=== PATIENT | male | born 1960 | race Caucasian/White ===

== ENCOUNTER → 2024-10-28 11:00 | Outpatient (REF) | payer BC, SELFPAY | LOC: MRI 3T 11:00 | PROVIDERS: ATTENDING PHYSICIAN Urology; FAMILY PHYSICIAN Family Medicine | DX: R97.20 Elevated prostate specific antigen [PSA] (principal) | CPT/HCPCS: 72197; A9575 ==

== ENCOUNTER → 2024-11-09 07:34 | Outpatient (REF) | payer BC, SELFPAY | LOC: RAD 07:34 | PROVIDERS: ATTENDING PHYSICIAN Urology; FAMILY PHYSICIAN Family Medicine | DX: R31.29 Other microscopic hematuria (principal) | CPT/HCPCS: 74178; Q9967 ==

== ENCOUNTER 2024-12-29 05:27 | Emergency (ER) | payer BC, SELFPAY ==
[2024-12-29] VITALS (8 sets, daily range): BP systolic 138–153; BP diastolic 104–122; BMI 39.1
[2024-12-29 06:11] LABS: Hematocrit 48.8 % (39.0-52.0); Hemoglobin 17.3 g/dL (13.0-18.0); Mean Corp Hgb Conc. 35.5 g/dL (33.0-37.0); Mean Corpuscular Volume 86.2 fL (80.0-94.0); Nucleated Red Blood Cells % 0 % (-); Platelet Count 191 10^3/uL (130-400); Red Cell Dist. Width 12.6 % (11.5-14.5)
--- NOTE | 2024-12-29 06:12 | ED.GENMED ---
History of Present Illness
General
Chief Complaint: Chest Pain
Source: patient
Exam Limitations: none
Time Seen by Provider: 12/29/24 06:00
Nursing documentation reviewed up to this point in time: agreed with
History of Present Illness
History of Present Illness:
64-year-old male with history of chronic A-fib on Eliquis, hypertension who presents to the emergency department with his for evaluation of chest pain. Patient reports onset of symptoms yesterday evening�he says he started to notice some mild
symptoms after dinner and they seem to be worse when he was laying in bed at night. He describes a tightness in his chest worse with lying flat. He denies any associated shortness of breath. He denies any diaphoresis. Denies any nausea,
vomiting, abdominal pain. He denies any recent cough, fevers, chills or URI symptoms. He denies having had similar symptoms in the past. He sees Dr. Combs for cardiology, on Eliquis and diltiazem for his A-fib and reports compliance.
Review of Systems
Review of Systems
All Other Systems: ROS reviewed and negative except as documented in HPI and ROS
Constitutional: Denies fever
Respiratory: Denies trouble breathing
Cardiac: Reports chest pain
ABD/GI: Denies abdominal pain, nausea or vomiting
: Denies flank pain
Musculoskeletal: Denies neck pain or back pain
Neurological: Denies dizzy or headache
Phy Exam
Physical Exam
Physical Exam:
General: Awake, alert, oriented x3; no acute distress
Head: Normocephalic, atraumatic
Eyes: Conjunctiva normal, sclera anicteric
Throat: Airway intact, handling secretions
Neck: Trachea midline, supple without meningismus
Lungs: Clear to auscultation bilaterally, no wheezing, rales, rhonchi
Heart: Regular rate and irregular rhythm, no murmurs, gallops, or rubs appreciated
Abd: Soft, non distended, nontender
Neuro: Grossly intact
Skin: no rash in area of concern
Extremities: No edema in extremities, equal pulses in all extremities
Scores
Heart Failure Risk
Heart Failure Risk Score: Not Applicable
Heart Score for Chest Pain Patients
STEMI patient?: No
History: Slightly or Non-Suspicious
ECG: Normal
Age: >45 - <65 years
Risk Factors: 1 or 2 Risk Factors
Troponin: </= Normal Limit
Heart Score for Chest Pain Patients: 2
Heart Score Risk: 2.5% MACE over next 6 weeks
Withdrawal Assessment of Alcohol
Withdrawal Assessment Completed?: Not applicable
Course
Orders/Labs/Results
Orders:
Orders
12/29/24 05:29
Electrocardiogram (*1) Urgent
Reason for Study: Other
Other Reason for Exam: Respiratory Distress
Cardiac Monitoring- Treatment ONCE
EKG- Treatment ONCE
IV Insert/Care/Rem.- Treatment PRN
CR Chest - 2 Views Urgent
Comment:
Reason For Exam: respiratory distress
O2 Therapy [RESP] Urgent
Titrate/Wean O2 to maintain O2 sat greater than (%): 93
Special Instructions: TO MAINTAIN CONTINUOUS O2 SATS >/= 93%
Pulse Ox/cont/shift [RESP] Urgent
Quantity: 1
Special Instructions: continuous pulse ox
12/29/24 06:02
C-Reactive Protein Urgent
Comment: ADD ON
Complete Blood Count/With Diff Urgent
Comprehensive Metabolic Panel Urgent
Erythrocyte Sed Rate Urgent
Comment: ADD ON
NT-proBNP Urgent
Troponin I Urgent
12/29/24 06:50
Add On- LAB Urgent
Comments:: tubes in lab
Tests Added?: CRP, ESR
12/29/24 08:22
Troponin I Urgent
Abnormal Lab Results
12/29/24
06:02
Absolute Monos (auto) 0.8 H 10^3/uL
(0.1-0.6)
Lymphocytes % 17.7 L %
(20.5-51.1)
Monocytes % 9.6 H %
(1.7-9.3)
BUN 26 H mg/dl
(9-20)
Glucose 117 H mg/dl
(70-99)
Total Bilirubin 1.4 H mg/dl
(0.2-1.3)
12/29/24 06:02
12/29/24 06:02
Vital Signs
Initial and Last Documented VS:
Initial Vital Signs
Temp Pulse Resp BP Pulse Ox
36.8 C 89 20 150/112 97
12/29/24 05:30 12/29/24 05:30 12/29/24 05:30 12/29/24 05:30 12/29/24 05:30
Last Documented Vital Signs
Temp Pulse Resp BP Pulse Ox
36.8 C 85 19 152/109 96
12/29/24 05:30 12/29/24 08:15 12/29/24 08:15 12/29/24 08:00 12/29/24 08:15
MDM/Problems Addressed
Differential Diagnosis Includes:
GERD, pericarditis, ACS, dysrhythmia; very low clinical suspicion for pulmonary embolism and patient is on Eliquis�in my judgment no indication for further workup for this diagnosis; very low clinical suspicion for aortic dissection--similarly, no
indication for further workup in my judgment
MDM/Problems Addressed:
64-year-old male presents for evaluation of chest pain that started yesterday evening after dinner seem to be worse when lying flat at night. Hypertensive but otherwise normal vitals. Physical exam is as above. His EKG shows A-fib which is
chronic no acute ischemic changes. Plan to place an IV check labs including CBC and CMP. Check troponin. He had a chest x-ray in triage which shows no acute abnormalities on my review. Will monitor patient on telemetry and reassess after the
above.
Initial labs reviewed: CBC and CMP unremarkable. Troponin undetectable x 1 with repeat pending. Chest x-ray reviewed by me shows no acute disease. Continue to monitor.
Repeat troponin undetectable. Inflammatory markers not elevated and overall low suspicion that this is pericarditis. Suspect this may be GERD related. Patient is already on omeprazole, advised to trial Pepcid as well. Given his cardiac history
we will refer to cardiology for follow-up of his chest pain although lower suspicion that this is cardiac chest pain based on history, exam, negative ED workup thus far. Patient comfortable with this plan. All questions answered.
Chronic conditions affecting care:
A-fib on Eliquis
*Radiology
Radiology exam reviewed: preliminary read by ED provider
*Pulse Oximetry
SaO2: 96
Oxygen Mode of Delivery: Room air
Patient hypoxic: no (96%)
*EKG
Interpreted by ED Provider?: Yes
Heart Rate: 96
Rate: normal
Rhythm: a-fib
[place]: normal axis
Interval: normal interval
QRS Pattern: normal QRS
Ischemia: no ischemia
*Critical Care Note
Total Time (30-74mins, 75-104mins- exclusive of procedures): Not Applicable
Data Reviewed
Source: patient and spouse
ED Attending Note
-
Portions of this chart may have been created with voice recognition software.� Occasional wrong word or��sound alike� substitutions may have occurred due to the inherent limitations of voice recognition software.
Discharge Plan
Departure
Patient Disposition: Home (Routine Discharge)
Date of Disposition: 12/29/24
Time of Disposition: 08:57
Patient with high blood pressure during this ER visit?: Yes
Discharge Problem:
Chest pain
Instructions: Chest Pain CBC Follow Up
Prescriptions:
No Action
fluticasone propion-salmeterol [Advair Diskus] 1 DISK blister with device
1 puff inhalation DAILY
diltiazem HCl 240 MG capsule,extended release 24hr
240 mg PO DAILY
losartan 25 MG tablet
50 mg PO DAILY
tadalafil 5 MG tablet
5 mg PO DAILY
Eliquis 5 MG tablet
5 mg PO BID
omeprazole 20 mg Tablet,Delayed Release (Dr/Ec)
20 mg PO DAILY
Referrals:
Ashutosh Muller MD [Family Provider, Family Practice]
Amish Combs MD [Active, Cardiology] - Call in 1-3 days for appt
Activity Restrictions/Additional Instructions:
Thank you for visiting the Emergency Department at [facility].
1. Please schedule a follow up appointment as directed. Call first thing tomorrow morning to make an appointment.
2. If indicated, please take your medications as instructed and indicated on discharge paperwork.
3. If any of your symptoms do not improve, or persist, or become more severe within 6-12 hours, please return to the emergency department for further care.
4. Please return to the emergency department if you develop a headache, neck pain/stiffness, fever greater than 100.4F, chest pain, shortness of breath, persistent nausea, vomiting, slurred speech, difficulty walking, numbness/tingling, weakness,
signs of infection or any other symptoms that are worrisome to you.
Please call [phone] if you have any questions.
Interventions
Interventions:
*Risk Screen - Suicide Last Done: 12/29/24 05:30
*General Assessment Last Done: 12/29/24 05:30
*Neglect/Abuse Screening Last Done: 12/29/24 05:30
*ED- Fall Risk Assessment Last Done: 12/29/24 05:30
*ED COVID-19 Vaccine History Last Done: 12/29/24 05:30
*ED Influenza Vaccine History Last Done: 12/29/24 05:30
ED- Cardiac Assessment Last Done: 12/29/24 05:45
Discharge Date and Time
Print Language: SAMI
[2024-12-29 06:27] LABS: AST (SGOT) 24 U/L (17-59); Albumin 4.4 g/dl (3.5-5.0); Blood Urea Nitrogen 26 mg/dl (9-20); Carbon Dioxide 24 mmol/L (22-30); Estimated Creatinine Clearance 74 ml/min; Glucose 117 mg/dl (70-99); Potassium 4.2 mmol/L (3.5-5.1); Total Protein 7.6 g/dl (6.3-8.2); eGFR > 60.00
[2024-12-29 06:36] LABS: ALT (SGPT) 28 U/L (0-50); Alkaline Phosphatase 50 U/L (38-126); Calcium 9.3 mg/dl (8.4-10.2); Chloride 106 mmol/L (98-107); Sodium 137 mmol/L (135-145)
[2024-12-29 06:38] LABS: Troponin I < 0.012 ng/ml
--- NOTE | 2024-12-29 07:49 | EDRN ---
Pt took his 4 am medications after seen by Dr. Sears. Pt given water to take the meds. Pt states he took Eliquis, omeprazole, cardizem, losartan.
--- NOTE | 2024-12-29 08:26 | EDRN ---
Troponin drawn and sent.
[2024-12-29 08:53] LABS: Troponin I < 0.012 ng/ml
--- NOTE | 2024-12-29 09:00 | EDRN ---
Dr. Sears in room w/ pt at this time.
[2024-12-29 09:19] LABS: C-Reactive Protein 25.80 mg/L (0.0-10.00)
== END 2024-12-29 09:09 | disposition home or self-care (01) ==
LOC: EMR 05:27
PROVIDERS: Student in an Organized Health Care Education/Training Program; EMERGENCY PHYSICIAN Emergency Medicine; FAMILY PHYSICIAN Family Medicine
DX: R07.89 Other chest pain (principal); I10 Essential (primary) hypertension; I48.20 Chronic atrial fibrillation, unspecified; Z79.01 Long term (current) use of anticoagulants
CPT/HCPCS: 99285; 71046; 80053; 83880; 84484; 85025; 85652; 86140; 93005